=== PATIENT | male | born 2000 | race Caucasian/White ===

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

== ENCOUNTER 2019-10-08 15:58 | Emergency (ER) | payer OTHER ==
[~2019-10-08] VITALS: Ht 167.6 cm; Wt 117.5 kg
[2019-10-08 16:03] VITALS: BP 152/84
--- NOTE | 2019-10-08 16:08 | NUR ---
Patient ambulated to bed 4. RN evaluating patient at bedside.
--- NOTE | 2019-10-08 16:29 | NUR ---
19 Y/M PRESENTS TO ED FOR RLQ ABD PAIN /, RADIATES TO REST OF ABD. PT REPORTS HEMATURIA, DENIES BURNING OR FREQ. PT AOX4 , AFIBRILE , AMBULATORY WITH STEADY GAIT , FLAT SOFT ABDOMEN. PMH-DENIES NKDA-DENIES RX- DENEIS
--- NOTE | 2019-10-08 16:38 | NUR ---
DR MELLO AT BEDSIDE EVALUATING PT.
[2019-10-08] MEDS ORDERED: KETOROLAC 30 MG/ML VIAL IVP ONE (16:45)
[2019-10-08 16:46] LABS: BILIRUBIN,URINE NEGATIVE (NEGATIVE); BLOOD, URINE 3+ (NEGATIVE); COLOR,URINE YELLOW (YELLOW); LEUKOCYTE ESTERASE ,URINE NEGATIVE (NEGATIVE); NITRITE, URINE NEGATIVE (NEGATIVE); PH,URINE 6.5 (5.0-9.0); UGLUCOSE NEGATIVE (NEGATIVE)
[2019-10-08 16:47] LABS: APPEARANCE,URINE HAZY (CLEAR)
[2019-10-08 16:57] LABS: RBC,URINE TOO NUMEROUS TO COUN /HPF (0-5); WBC,URINE NONE SEEN /HPF (0-5)
--- NOTE | 2019-10-08 16:57 | NUR ---
LAD AT BEDSIDE.
[2019-10-08 17:06] LABS: BASOPHILS # (AUTO) 0.1 K/uL (0.00-0.22); BASOPHILS % (AUTO) 0.7 % (0.0-2.0); EOSINOPHILS # (AUTO) 0.4 K/uL (0-0.4); HEMATOCRIT 47.2 % (36-52); HEMOGLOBIN 15.9 g/dL (12.0-18.0); LYMPHOCYTES # (AUTO) 2.4 K/uL (2.0-11.5); LYMPHOCYTES % (AUTO) 19.4 % (20.5-51.1); MEAN CORPUSCULAR HEMOGLOBIN 31 pg (27-31); MEAN CORPUSCULAR HGB CONC 34 g/dL (33-37); MEAN CORPUSCULAR VOLUME 91.9 fL (80-94); MONOCYTES # (AUTO) 0.7 K/uL (0.8-1.0); MONOCYTES % (AUTO) 5.6 % (1.7-9.3); NEUTROPHILS # (AUTO) 8.7 K/uL (1.8-7.7); NEUTROPHILS % (AUTO) 71.3 % (42.2-75.2); PLATELET COUNT (AUTO) 280 K/uL (140-450); RED BLOOD CELL COUNT(AUTO) 5.14 MIL/uL (4.20-6.10); RED CELL DISTRIBUTION WIDTH 12.6 % (11.6-13.7); WHITE BLOOD COUNT (AUTO) 12.2 K/uL (4.8-10.8)
--- NOTE | 2019-10-08 17:15 | NUR ---
PT TO CT SCAN VIA WHEEL CHAIR.
[2019-10-08 17:21] LABS: ANION GAP 14.3 (8-16); CARBON DIOXIDE 30.1 mmol/L (21-32); CREATININE 1.5 mg/dL (0.6-1.3); POTASSIUM 4.4 mmol/L (3.5-5.1)
--- NOTE | 2019-10-08 17:29 | NUR ---
Patient returned from CT scan.
[2019-10-08 17:32] LABS: ALBUMIN 4.3 g/dL (3.4-5.0); TOTAL BILIRUBIN 0.5 mg/dL (0.0-1.0)
[2019-10-08] MEDS ORDERED: NACL 0.9% 1,000 ML IV ONE (17:45)
--- NOTE | 2019-10-08 17:47 | NUR ---
Dr. Londono is reevaluating the patient at bedside.
--- NOTE | 2019-10-08 18:17 | NUR ---
PT COMFORTABLE IN BED IV WITH GOOD FLOW.
[2019-10-08 18:43] VITALS: BP 152/84
--- NOTE | 2019-10-08 18:44 | NUR ---
Patient discharged with v/s stable. Written and verbal after care instructions given and explained regarding ureteral colic. Patient alert, oriented and verbalized understanding of instructions. Ambulatory with steady gait. All questions addressed prior to discharge. ID band removed. Patient advised to follow up with PMD. Rx of flomax , naprosyn and norco given. Patient educated on indication of medication including possible reaction and side effects. Opportunity to ask questions provided and answered.
== END 2019-10-08 18:44 | disposition home or self-care (01) ==
LOC: MED 15:58
DX: N20.1 Calculus of ureter (principal); R03.0 Elevated blood-pressure reading, without diagnosis of hypertension; N20.0 Calculus of kidney
CPT/HCPCS: 36415; 74176; 80053; 81001; 85025; 96361; 96374; 99284; J1885; J7030

== ENCOUNTER 2019-10-09 22:40 | Emergency (ER) | payer OTHER ==
[~2019-10-09] VITALS: Ht 175.3 cm; Wt 117.9 kg
[2019-10-09 23:02] VITALS: BP 140/79
[2019-10-09] MEDS ORDERED: KETOROLAC 30 MG/ML VIAL IVP ONE (23:25)
[2019-10-09] MEDS ORDERED: NACL 0.9% 1,000 ML IV ONE (23:25)
--- NOTE | 2019-10-09 23:49 | NUR ---
PT WAS SEEN HERE YESTERDAY FOR SAME ISSUE ANS WAS DX WITH KIDNEY STONES. HE STATES HE WAS TOLD TO COME BACK IF THE PAIN HADN'T RESOLVED. PAIN IS IN LOWER PELVIC AREA RADIATING INTO HIS LOWER BACK. DENIES PAINFUL URINATION TODAY AND NO HEMATURIA. PT STATES HE TOOK THE PRESCRIBED MEDS BUT HAD NO RELIEF. DENIES N/V/D, AFEBRILE. BED IN LOWEST POSITION AND SIDERAIL UP X 1. NKA NO HX
[2019-10-10 00:37] VITALS: BP 132/79
--- NOTE | 2019-10-10 00:38 | NUR ---
Patient discharged with v/s stable. Written and verbal after care instructions given and explained. Patient verbalized understanding. Ambulatory with steady gait. All questions addressed prior to discharge. Advised to follow up with PMD.
== END 2019-10-10 00:38 | disposition home or self-care (01) ==
LOC: MED 22:40
DX: R10.9 Unspecified abdominal pain (principal); N20.0 Calculus of kidney
CPT/HCPCS: 81002; 96361; 96374; 99283; J1885; J7030

== ENCOUNTER 2019-10-31 06:20 | Emergency (ER) | payer OTHER ==
[~2019-10-31] VITALS: Ht 180.3 cm; Wt 108.0 kg
--- NOTE | 2019-10-31 06:32 | NUR ---
Maria Teresa mckee in [facility] - 10/31/19 at 0634 by ABDULLAHI PT TAKEN TO OVERFLOW TENT
--- NOTE | 2019-10-31 06:34 | NUR ---
PT TAKEN TO BED 4
[2019-10-31] MEDS ORDERED: NACL 0.9% 1,000 ML IV ONE (06:40)
[2019-10-31] MEDS ORDERED: KETOROLAC 30 MG/ML VIAL IVP ONE (06:40)
[2019-10-31 06:55] VITALS: BP 123/60
--- NOTE | 2019-10-31 06:55 | NUR ---
19 Y/O MALE PRESENTS TO ER WITH C/O LEFT FLANK PAIN X 2 HRS. 7/10 LEFT FLANK PAIN WITH RADIATION TO LEFT LOWER ABDOMEN. PT STATES 2-3 WEEKS AGO HE WAS DIAGNOSED WITH KIDNEY STONES. AT 0500 PT WOKE UP WITH LEFT FLANK PAIN, AND VOMITING AFTER EATING SPICY CHICKEN LAST EVENING. ALSO C/O NAUSEA, SUBJECTIVE COUGH, CHILLS, DYSURIA. PT IS AFEBRILE, DENIES SOB, HEADACHE. A&O X4, VSS, R/R EQUAL, AND UNLABORED. SIDE RAIL X1, BED IN LOW POSITION, WILL CONTINUE TO MONITOR. NKDA DENIES PMH
[2019-10-31 07:11] LABS: APPEARANCE,URINE CLOUDY (CLEAR); BILIRUBIN,URINE 2+ (NEGATIVE); BLOOD, URINE 3+ (NEGATIVE); COLOR,URINE BROWN (YELLOW); LEUKOCYTE ESTERASE ,URINE NEGATIVE (NEGATIVE); NITRITE, URINE POSITIVE (NEGATIVE); PH,URINE 5.5 (5.0-9.0); UGLUCOSE NEGATIVE (NEGATIVE)
[2019-10-31] MEDS ORDERED: ONDANSETRON 4 MG/2 ML VIAL IVP ONE (07:15)
--- NOTE | 2019-10-31 07:23 | NUR ---
PT TAKEN TO CT SCAN VIA WHEELCHAIR
[2019-10-31 07:30] LABS: RBC,URINE >100 /HPF (0-5); URINE AMORPHOUS URATE 1+ /HPF (None Seen)
[2019-10-31] MEDS ORDERED: MORPHINE SULFATE 2 MG/ML SYR IVP ONE (07:30)
[2019-10-31 09:11] VITALS: BP 132/65
--- NOTE | 2019-10-31 09:11 | NUR ---
Patient discharged with v/s stable. Written and verbal after care instructions given and explained. Patient alert, oriented and verbalized understanding of instructions. Ambulatory with steady gait. All questions addressed prior to discharge. ID band removed. Patient advised to follow up with PMD. Rx of MOTRIN, FLOMAX, TRAMADOL given. Patient educated on indication of medication including possible reaction and side effects. Opportunity to ask questions provided and answered.
== END 2019-10-31 09:11 | disposition home or self-care (01) ==
LOC: MED 06:20
DX: N20.2 Calculus of kidney with calculus of ureter (principal); R03.0 Elevated blood-pressure reading, without diagnosis of hypertension
CPT/HCPCS: 74176; 81001; 87086; 96361; 96374; 96375; 99284; J1885; J2270; J2405; J7030

== ENCOUNTER 2020-10-12 20:06 | Emergency (ER) | payer OTHER ==
[~2020-10-12] VITALS: Ht 170.2 cm; Wt 118.4 kg
[2020-10-12 20:28] VITALS: BP 124/68
--- NOTE | 2020-10-12 21:35 | NUR ---
AMBULATED TO BED #4
--- NOTE | 2020-10-12 21:54 | NUR ---
PT AMBULATED TO ROOM 4 PLACED IN GOWN AND AWAITS MD AMBROSE. PT C/O LEFT GROIN PAIN X 2DAYS THAT RADIATES DOWN LEFT LEG. DENIES HEAVY LIFTING. PT ALSO REPORTS A SLIGHT PAIN WHEN HE URINATES STATES HAS HX KIDNEY STONE AND FELT LIKE THIS. PMHX KIDNEY STONE NKDA
--- NOTE | 2020-10-12 22:06 | NUR ---
urine dip completed shown to .
--- NOTE | 2020-10-12 23:25 | NUR ---
ultrasound at beside.
[2020-10-13 00:53] VITALS: BP 132/74
--- NOTE | 2020-10-13 00:53 | NUR ---
Patient appears to be resting comfortably in bed. Vital Signs within normal limits. Respirations even and unlabored. awaiting disposition. v.s.s
== END 2020-10-13 00:53 | disposition home or self-care (01) ==
LOC: MED 20:06
DX: R10.32 Left lower quadrant pain (principal)
CPT/HCPCS: 76770; 76870; 81002; 99285

== ENCOUNTER 2020-12-12 06:00 | Emergency (ER) | payer OTHER ==
[~2020-12-12] VITALS: Ht 175.3 cm; Wt 111.1 kg
[2020-12-12 06:22] VITALS: BP 154/88
--- NOTE | 2020-12-12 06:22 | NUR ---
to bed ambulatory
--- NOTE | 2020-12-12 06:28 | NUR ---
Received in bed 1 with c/o rt lower flank pain with vomiting since last night.
--- NOTE | 2020-12-12 06:30 | NUR ---
Prudencio HALL AT BEDSIDE FOR EXAM
[2020-12-12] MEDS ORDERED: KETOROLAC 15 MG/ML VIAL IVP ONE (06:40)
[2020-12-12] MEDS ORDERED: ONDANSETRON 4 MG/2 ML VIAL IVP ONE (06:40)
[2020-12-12] MEDS ORDERED: NACL 0.9% 1,000 ML IV ONE (06:40)
[2020-12-12 07:24] LABS: BASOPHILS # (AUTO) 0.1 K/uL (0.00-0.22); BASOPHILS % (AUTO) 0.4 % (0.0-2.0); EOSINOPHILS % (AUTO) 0.3 % (0.0-4.0); HEMOGLOBIN 15.7 g/dL (12.0-18.0); LYMPHOCYTES # (AUTO) 1.7 K/uL (2.0-11.5); LYMPHOCYTES % (AUTO) 12.5 % (20.5-51.1); MEAN CORPUSCULAR HEMOGLOBIN 31 pg (27-31); MEAN CORPUSCULAR HGB CONC 34 g/dL (33-37); MEAN CORPUSCULAR VOLUME 91.7 fL (80-94); MONOCYTES # (AUTO) 0.7 K/uL (0.8-1.0); MONOCYTES % (AUTO) 5.4 % (1.7-9.3); NEUTROPHILS # (AUTO) 10.9 K/uL (1.8-7.7); NEUTROPHILS % (AUTO) 81.4 % (42.2-75.2); PLATELET COUNT (AUTO) 308 K/uL (140-450); RED BLOOD CELL COUNT(AUTO) 5.01 MIL/uL (4.20-6.10); RED CELL DISTRIBUTION WIDTH 12.8 % (11.6-13.7); WHITE BLOOD COUNT (AUTO) 13.4 K/uL (4.8-10.8)
[2020-12-12 08:07] LABS: ALBUMIN 4.3 g/dL (3.4-5.0); ANION GAP 14.6 (8-16); CARBON DIOXIDE 25.1 mmol/L (21-32); POTASSIUM 3.7 mmol/L (3.5-5.1); TOTAL BILIRUBIN 0.7 mg/dL (0.0-1.0)
--- NOTE | 2020-12-12 08:18 | NUR ---
Urine collected and walked down to lab
[2020-12-12 08:47] LABS: BILIRUBIN,URINE NEGATIVE (NEGATIVE); BLOOD, URINE 3+ (NEGATIVE); COLOR,URINE BROWN (YELLOW); LEUKOCYTE ESTERASE ,URINE NEGATIVE (NEGATIVE); NITRITE, URINE NEGATIVE (NEGATIVE); PH,URINE 6.5 (5.0-9.0); UGLUCOSE NEGATIVE (NEGATIVE)
[2020-12-12 08:49] LABS: APPEARANCE,URINE SLIGHTLY HAZY (CLEAR)
[2020-12-12 08:58] LABS: RBC,URINE 20-50 /HPF (0-5); WBC,URINE 0-5 /HPF (0-5)
[2020-12-12 09:17] VITALS: BP 137/75
== END 2020-12-12 09:17 | disposition home or self-care (01) ==
LOC: MED 06:00
DX: N20.0 Calculus of kidney (principal); R94.5 Abnormal results of liver function studies; Z87.442 Personal history of urinary calculi
CPT/HCPCS: 36415; 80053; 81001; 83690; 85025; 96361; 96374; 96375; 99284; J1885; J2405; J7030